=== PATIENT | male | born 1940 | race Caucasian/White ===

== ENCOUNTER 2018-01-28 09:59 | Inpatient (IN) | payer OTHER, MEDICARE ==
[2018-01-28] MEDS ORDERED: methylPREDNISolone Sodium Succinate 125 MG/2 ML SDV IVPUSH ONE (10:03)
--- NOTE | 2018-01-28 10:06 | EDM.PDOC ---
ED HPI GENERAL MEDICAL PROBLEM - General Chief Complaint: Respiratory Problem Stated Complaint: DIFF BREATHING Time Seen by Provider: 01/28/18 10:04 Source of Information: Reports: Patient - History of Present Illness INITIAL COMMENTS - FREE TEXT/NARRATIVE: HISTORY AND PHYSICAL: History of present illness: Patient was sent by private vehicle from [facility] Shortness of breath with accessory muscle usage No fever nausea vomiting chills sweats no chest pain Review of systems: As per history of present illness and below otherwise all systems reviewed and negative. Past medical history: As per history of present illness and as reviewed below otherwise noncontributory. Surgical history: As per history of present illness and as reviewed below otherwise noncontributory. Social history: No reported history of drug or alcohol abuse. Family history: As per history of present illness and as reviewed below otherwise noncontributory. Physical exam: HEENT: Atraumatic, normocephalic, pupils reactive, negative for conjunctival pallor or scleral icterus, mucous membranes moist, throat clear, neck supple, nontender, trachea midline. Lungs: Clear to auscultation, breath sounds equal bilaterally, chest nontender. Heart: S1S2, regular, negative for clicks, rubs, or JVD. Abdomen: Soft, nondistended, nontender. Negative for masses or hepatosplenomegaly. Negative for costovertebral tenderness. Pelvis: Stable nontender. Genitourinary: Deferred. Rectal: Deferred. Extremities: Atraumatic, negative for cords or calf pain. Neurovascular unremarkable. Neuro: Awake, alert, oriented. Cranial nerves II through XII unremarkable. Cerebellum unremarkable. Motor and sensory unremarkable throughout. Exam nonfocal. Diagnostics: CBC CMP troponin EKG Chest 1 view Therapeutics: normal saline TKO Solu-Medrol 125 mg IV DuoNeb 2 Impression: Hypoxia shortness of breath COPD exacerbation history of diabetes COPD hypertension Definitive disposition and diagnosis as appropriate pending reevaluation and review of above. - Related Data Allergies Allergy/AdvReac Type Severity Reaction Status Date / Time No Known Allergies Allergy Verified 01/28/18 10:08 Home Meds: Home Meds Aspirin/Calcium Carbonate/Mag [Aspirin Buffered 325 mg Tab] 325 mg PO DAILY [History] Metoprolol Tartrate 100 mg PO BID 05/22/14 [History] atorvaSTATin [Lipitor] 20 mg PO BEDTIME 05/22/14 [History] Triamterene/Hydrochlorothiazid [Triamterene-HCTZ 37.5-25 MG] 1 cap PO DAILY [History] Sennosides [Senna] 8.6 mg PO DAILY tablet 10/22/17 [Rx] Tiotropium [Spiriva HandiHaler] 18 mcg INH DAILY #30 cap 10/22/17 [Rx] Past Medical History Cardiovascular History: Reports: Bypass, High Cholesterol, Hypertension, Pacemaker Respiratory History: Reports: COPD, Sleep Apnea, SOB Endocrine/Metabolic History: Reports: Diabetes, Type II - Infectious Disease History Infectious Disease History: Reports: Measles Social & Family History - Family History Family Medical History: Noncontributory - Caffeine Use Caffeine Use: Reports: Coffee ED ROS GENERAL - Review of Systems Review Of Systems: See Below ED EXAM, GENERAL - Physical Exam Exam: See Below Course - Vital Signs Last Recorded V/S: Last Vital Signs Temp 97.3 F 01/28/18 10:03 Pulse 59 L 01/28/18 10:52 Resp 24 H 01/28/18 10:52 BP 136/66 01/28/18 10:52 Pulse Ox 96 01/28/18 10:52 - Orders/Labs/Meds Orders: Active Orders 24 hr Category Date Time Status EKG Documentation Completion [RC] STAT Care 01/28/18 10:03 Active RT Aerosol Therapy [RC] ASDIRECTED Care 01/28/18 10:04 Active UA W/MICROSCOPIC [URIN] Stat Lab 01/28/18 10:03 Ordered Sodium Chloride 0.9% [Normal Saline] 1,000 ml Med 01/28/18 10:15 Active IV STAT Medication Orders Sodium Chloride (Normal Saline) 1,000 mls @ 30 mls/hr IV STAT AARON Last Admin: 01/28/18 10:20 Dose: 30 mls/hr Labs: Laboratory Tests 01/28/18 01/28/18 01/28/18 Range/Units 09:42 09:42 09:42 WBC 10.19 (4.0-11.0) K/uL RBC 5.56 (4.50-5.90) M/uL Hgb 15.7 (13.0-17.0) g/dL Hct 47.7 (38.0-50.0) % MCV 85.8 (80.0-98.0) fL MCH 28.2 (27.0-32.0) pg MCHC 32.9 (31.0-37.0) g/dL RDW Std Deviation 49.6 (28.0-62.0) fl RDW Coeff of Johanna 16 H (11.0-15.0) % Plt Count 153 (150-400) K/uL MPV 9.70 (7.40-12.00) fL Neut % (Auto) 69.2 (48.0-80.0) % Lymph % (Auto) 13.2 L (16.0-40.0) % [place] % (Auto) 9.0 (0.0-15.0) % Eos % (Auto) 8.3 H (0.0-7.0) % Baso % (Auto) 0.3 (0.0-1.5) % Neut # (Auto) 7.1 H (1.4-5.7) K/uL Lymph # (Auto) 1.3 (0.6-2.4) K/uL [place] # (Auto) 0.9 H (0.0-0.8) K/uL Eos # (Auto) 0.9 H (0.0-0.7) K/uL Baso # (Auto) 0.0 (0.0-0.1) K/uL Nucleated RBC % 0.0 /100WBC Nucleated RBCs # 0 K/uL Sodium 137 (136-148) mmol/L Potassium 4.3 (3.5-5.1) mmol/L Chloride 102 (98-107) mmol/L Carbon Dioxide 27.7 (21.0-32.0) mmol/L BUN 22 H (7.0-18.0) mg/dL Creatinine 1.2 (0.8-1.3) mg/dL Est Cr Clr Drug Dosing 53.21 mL/min Estimated GFR (MDRD) 58.6 ml/min Glucose 171 H (74-106) mg/dL Calcium 9.4 (8.5-10.1) mg/dL Total Bilirubin 0.7 (0.2-1.0) mg/dL AST 28 (15-37) IU/L ALT 82 H (14-63) IU/L Alkaline Phosphatase 98 (46-116) U/L Troponin I < 0.050 (0.000-0.056) ng/mL B-Natriuretic Peptide 218 H (<100) PG/ML Total Protein 7.3 (6.4-8.2) g/dL Albumin 3.8 (3.4-5.0) g/dL Globulin 3.5 (2.0-3.5) g/dL Albumin/Globulin Ratio 1.1 L (1.3-2.8) Meds: Medications Generic Name Dose Route Start Last Admin Trade Name Freq PRN Reason Stop Dose Admin Sodium Chloride 1,000 mls @ 30 mls/hr 01/28/18 10:15 01/28/18 10:20 Normal Saline IV 30 mls/hr STAT AARON Administration Discontinued Medications Generic Name Dose Route Start Last Admin Trade Name Freq PRN Reason Stop Dose Admin Albuterol/Ipratropium 3 ml 01/28/18 10:03 01/28/18 10:26 Duoneb 3.0-0.5 Mg/3 Ml NEB 01/28/18 10:04 Not Given ONETIME ONE Albuterol/Ipratropium Confirm 01/28/18 10:21 01/28/18 10:27 Duoneb 3.0-0.5 Mg/3 Ml Administered 01/28/18 10:22 3 ml Dose Administration 3 ml .ROUTE .STK-MED ONE Methylprednisolone Sodium Succinate 125 mg 01/28/18 10:03 01/28/18 10:20 Solu-Medrol IVPUSH 01/28/18 10:04 125 mg ONETIME ONE Administration Departure - Departure Time of Disposition: 11:21 Disposition: Admitted As Inpatient 65 Condition: Poor Clinical Impression: Hypoxia, COPD (chronic obstructive pulmonary disease) - Discharge Information Referrals: Isis Peter MD [Primary Care Provider] - Forms: ED Department Discharge - My Orders Last 24 Hours: My Active Orders 01/28/18 10:03 EKG Documentation Completion [RC] STAT UA W/MICROSCOPIC [URIN] Stat 01/28/18 10:04 RT Aerosol Therapy [RC] ASDIRECTED 01/28/18 10:15 Sodium Chloride 0.9% [Normal Saline] 1,000 ml IV STAT - Assessment/Plan Last 24 Hours: My Active Orders 01/28/18 10:03 EKG Documentation Completion [RC] STAT UA W/MICROSCOPIC [URIN] Stat 01/28/18 10:04 RT Aerosol Therapy [RC] ASDIRECTED 01/28/18 10:15 Sodium Chloride 0.9% [Normal Saline] 1,000 ml IV STAT
[2018-01-28] MEDS ORDERED: Sodium Chloride 0.9% 1,000 ML IV SCH (10:15)
[2018-01-28] MEDS ORDERED: Albuterol/Ipratropium 3.0-0.5 MG/3 ML Neb Soln ONE (10:21)
[2018-01-28] MEDS: Albuterol/Ipratropium 3.0-0.5 MG/3 ML Neb Soln NEB ONE ×2 (10:26)
[2018-01-28 10:55] LABS: CHLORIDE,CL 102 mmol/L (98-107); SODIUM,NA 137 mmol/L (136-148)
--- NOTE | 2018-01-28 11:00 | CR ---
EXAMINATION: Portable chest radiograph. HISTORY: Shortness of breath. Comparison: 10/19/2017 FINDINGS: The trachea is midline. The cardiomediastinal silhouette is within normal limits. No pulmonary infilt rates, effusions or pneumothorax. There is a left-sided pacemaker noted. Median sternotomy wires are demonstrated. Osseous structures appear unremarkable. IMPRESSION: No acute cardiopulmonary process.
--- NOTE | 2018-01-28 13:59 | PCM.HP ---
H&P History of Present Illness - General Date of Service: 01/28/18 Admit Problem/Dx: Admission Diagnosis/Problem Admission Diagnosis/Problem Hypoxia Source of Information: Patient, Old Records History Limitations: Reports: No Limitations - History of Present Illness Initial Comments - Free Text/Narative: The patient is a 77-year-old gentleman who has presented to the emergency department after visiting his primary care physician. The patient was in the office and was referred directly to the emergency department. The patient reports for the past 3 weeks he has had severe shortness of breath. He has had difficulty breathing. Patient also has had worsening of this with exertion. He was admitted to hospitalization in October 2017 with similar circumstances. The patient has denied any fever or chills. He's had no nausea or vomiting. He has had no specific aggravating or relieving factors other than dyspnea on exertion. The patient does not normally use oxygen at home. He says that he quit smoking 20 years ago. Onset of Symptoms: Reports: Gradual Duration of Symptoms: Reports: Week(s):, Getting Worse Location: Reports: Chest Severity: Moderate Improves with: Reports: Medication Worsens with: Reports: Movement Associated Symptoms: Reports: Cough, Shortness of Breath. Denies: Fever/Chills , Headaches, Nausea/Vomiting - Related Data Allergies/Adverse Reactions: Allergies Allergy/AdvReac Type Severity Reaction Status Date / Time No Known Allergies Allergy Verified 01/28/18 10:08 Home Medications: Home Meds Aspirin/Calcium Carbonate/Mag [Aspirin Buffered 325 mg Tab] 325 mg PO DAILY [History] Metoprolol Tartrate 100 mg PO BID 05/22/14 [History] atorvaSTATin [Lipitor] 20 mg PO BEDTIME 05/22/14 [History] Triamterene/Hydrochlorothiazid [Triamterene-HCTZ 37.5-25 MG] 1 cap PO DAILY [History] Sennosides [Senna] 8.6 mg PO DAILY tablet 10/22/17 [Rx] Tiotropium [Spiriva HandiHaler] 18 mcg INH DAILY #30 cap 10/22/17 [Rx] Saxagliptin HCl/Metformin HCl [Kombiglyze XR 2.5-1,000 MG] 1 each PO ACDINNER [History] Past Medical History HEENT History: Reports: Cataract, Impaired Vision Other HEENT History: wears glasses Cardiovascular History: Reports: Bypass, High Cholesterol, Hypertension, Pacemaker Respiratory History: Reports: COPD, Sleep Apnea, SOB Gastrointestinal History: Reports: None Genitourinary History: Reports: None Musculoskeletal History: Reports: None Neurological History: Reports: None Endocrine/Metabolic History: Reports: Diabetes, Type II Hematologic History: Reports: None Dermatologic History: Reports: None - Infectious Disease History Infectious Disease History: Reports: Measles Social & Family History - Family History Family Medical History: Noncontributory - Tobacco Use Smoking Status *Q: Former Smoker Years of Tobacco use: 40 Packs/Tins Daily: 2 Used Tobacco, but Quit: Yes Month/Year Tobacco Last Used: 2003 Second Hand Smoke Exposure: No - Caffeine Use Caffeine Use: Reports: Coffee - Recreational Drug Use Recreational Drug Use: No H&P Review of Systems - Review of Systems: Review Of Systems: See Below General: Reports: Malaise. Denies: Fever, Chills HEENT: Reports: No Symptoms Pulmonary: Reports: Shortness of Breath, Wheezing, Cough. Denies: Sputum, Hemoptysis Cardiovascular: Reports: No Symptoms Gastrointestinal: Reports: No Symptoms Genitourinary: Reports: No Symptoms Musculoskeletal: Reports: No Symptoms Skin: Reports: No Symptoms Psychiatric: Reports: No Symptoms Neurological: Reports: No Symptoms Hematologic/Lymphatic: Reports: No Symptoms Immunologic: Reports: No Symptoms Exam - Exam Exam: See Below - Vital Signs Vital Signs: Last Vital Signs Temp 36.3 C 01/28/18 11:38 Pulse 63 01/28/18 11:38 Resp 22 H 01/28/18 11:38 BP 135/64 01/28/18 11:38 Pulse Ox 95 01/28/18 11:38 Weight: 115.439 kg - Exam Quality Assessment: Supplemental Oxygen General: Alert, Oriented, Cooperative HEENT: Conjunctiva Clear, EACs Clear, EOMI, Hearing Intact, Nares Patent, Pupils Equal. No: Mucosa Moist & Olivia Lopez De Gutierrez (Oropharynx dry) Neck: Supple, Trachea Midline. No: Thyromegaly Lungs: Decreased Breath Sounds, Crackles (Throughout all lung jackman), Wheezing Cardiovascular: Regular Rate, Regular Rhythm GI/Abdominal Exam: Normal Bowel Sounds, Soft, Non-Tender, No Distention (Male) Exam: Deferred Rectal (Males) Exam: Deferred Back Exam: Normal Inspection. No: Full Range of Motion (Age-related changes) Extremities: Normal Inspection, No Pedal Edema Skin: Warm, Dry, Intact Neurological: Cranial Nerves Intact Neuro Extensive - Mental Status: Alert, Oriented x3 Psychiatric: Alert, Normal Affect, Normal Mood - Patient Data Lab Results Last 24 hrs: Laboratory Results - last 24 hr 01/28/18 01/28/18 01/28/18 Range/Units 09:42 09:42 09:42 WBC 10.19 (4.0-11.0) K/uL RBC 5.56 (4.50-5.90) M/uL Hgb 15.7 (13.0-17.0) g/dL Hct 47.7 (38.0-50.0) % MCV 85.8 (80.0-98.0) fL MCH 28.2 (27.0-32.0) pg MCHC 32.9 (31.0-37.0) g/dL RDW Std Deviation 49.6 (28.0-62.0) fl RDW Coeff of Johanna 16 H (11.0-15.0) % Plt Count 153 (150-400) K/uL MPV 9.70 (7.40-12.00) fL Neut % (Auto) 69.2 (48.0-80.0) % Lymph % (Auto) 13.2 L (16.0-40.0) % [place] % (Auto) 9.0 (0.0-15.0) % Eos % (Auto) 8.3 H (0.0-7.0) % Baso % (Auto) 0.3 (0.0-1.5) % Neut # (Auto) 7.1 H (1.4-5.7) K/uL Lymph # (Auto) 1.3 (0.6-2.4) K/uL [place] # (Auto) 0.9 H (0.0-0.8) K/uL Eos # (Auto) 0.9 H (0.0-0.7) K/uL Baso # (Auto) 0.0 (0.0-0.1) K/uL Nucleated RBC % 0.0 /100WBC Nucleated RBCs # 0 K/uL Sodium 137 (136-148) mmol/L Potassium 4.3 (3.5-5.1) mmol/L Chloride 102 (98-107) mmol/L Carbon Dioxide 27.7 (21.0-32.0) mmol/L BUN 22 H (7.0-18.0) mg/dL Creatinine 1.2 (0.8-1.3) mg/dL Est Cr Clr Drug Dosing 53.21 mL/min Estimated GFR (MDRD) 58.6 ml/min Glucose 171 H (74-106) mg/dL Calcium 9.4 (8.5-10.1) mg/dL Total Bilirubin 0.7 (0.2-1.0) mg/dL AST 28 (15-37) IU/L ALT 82 H (14-63) IU/L Alkaline Phosphatase 98 (46-116) U/L Troponin I < 0.050 (0.000-0.056) ng/mL B-Natriuretic Peptide 218 H (<100) PG/ML Total Protein 7.3 (6.4-8.2) g/dL Albumin 3.8 (3.4-5.0) g/dL Globulin 3.5 (2.0-3.5) g/dL Albumin/Globulin Ratio 1.1 L (1.3-2.8) Result Diagrams: 01/28/18 09:42 01/28/18 09:42 - Problem List (1) Acute and chronic respiratory failure SNOMED Code(s): 19712726 ICD Code: J96.20 - ACUTE AND CHR RESP FAILURE, UNSP W HYPOXIA OR HYPERCAPNIA Status: Acute Priority: High Current Visit: Yes Qualifiers: Respiratory failure complication: hypoxia Qualified Code(s): J96.21 - Acute and chronic respiratory failure with hypoxia (2) COPD exacerbation SNOMED Code(s): 662194951 ICD Code: J44.1 - CHRONIC OBSTRUCTIVE PULMONARY DISEASE W (ACUTE) EXACERBATION Status: Chronic Priority: High Current Visit: Yes (3) Hypoxia SNOMED Code(s): 980827053 ICD Code: R09.02 - HYPOXEMIA Status: Acute Priority: High Current Visit : Yes (4) Diabetes mellitus SNOMED Code(s): 27169534 ICD Code: E11.9 - TYPE 2 DIABETES MELLITUS WITHOUT COMPLICATIONS Status: Chronic Priority: Medium Current Visit: Yes Qualifiers: Diabetes mellitus type: type 2 Diabetes mellitus buttermaker continuous churn insulin use: without group home use Diabetes mellitus complication status: with neurologic complications Diabetes mellitus complication detail: with polyneuropathy Qualified 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 (5) Hypertension SNOMED Code(s): 20672707 ICD Code: I10 - ESSENTIAL (PRIMARY) HYPERTENSION Status: Chronic Priority : Medium Current Visit: Yes Qualifiers: Hypertension type: essential hypertension Qualified Code(s): I10 - Essential (primary) hypertension (6) Obesity SNOMED Code(s): 317889636, 875147033 ICD Code: E66.9 - OBESITY, UNSPECIFIED Status: Chronic Priority: Medium Current Visit: No Qualifiers: Obesity classification: unspecified obesity classification Problem List Initiated/Reviewed/Updated: Yes Orders Last 24hrs: Active Orders 24 hr Category Date Time Status Admission Status [Patient Status] [ADT] Stat ADT 01/28/18 11:21 Active EKG Documentation Completion [RC] STAT Care 01/28/18 10:03 Active RT Aerosol Therapy [RC] ASDIRECTED Care 01/28/18 10:04 Active UA W/MICROSCOPIC [URIN] Stat Lab 01/28/18 13:45 Received Sodium Chloride 0.9% [Normal Saline] 1,000 ml Med 01/28/18 10:15 Active IV STAT Medication Orders Sodium Chloride (Normal Saline) 1,000 mls @ 30 mls/hr IV STAT AARON Last Admin: 01/28/18 10:20 Dose: 30 mls/hr Assessment/Plan Comment:: The patient is a 77-year-old gentleman who has been admitted observation secondary to acute exacerbation of COPD along with acute on chronic respiratory failure. The patient will be kept on IV fluids normal saline at 50 mL per hour to help avoid complications with congestive heart failure. The patient's fluid status was monitored. Patient is also diabetic and his results of this he'll be kept on insulin sliding scale along with acute checks before meals and at bedtime. He is also being kept on a carb constant diet. The patient does have a history of hyperglycemic episodes and these may be exacerbated by the steroids. These will be watched closely. He'll also be kept on IV antibiotics azithromycin 250 mg IV daily. Patient also has been encouraged to ambulate. The patient will be kept on Lovenox 40 mg subcutaneous daily for DVT prophylaxis as well. I suspect if the patient will be appropriate for discharge once his oxygen demands have improved and he is physically better. I have ordered repeat laboratory testing several morning.
[2018-01-28] MEDS ORDERED: Acetaminophen 325 MG Tab PO PRN (15:26)
[2018-01-28] MEDS ORDERED: Morphine 2 MG/ML Syringe IVPUSH PRN (15:26)
[2018-01-28] MEDS ORDERED: Pneumococcal Polyvalent-23 Vaccine 0.5 ML SDV IM ONE (15:26)
[2018-01-28] MEDS ORDERED: oxyCODONE 5 MG Tab PO PRN (15:26)
[2018-01-28] MEDS ORDERED: Ondansetron 4 MG Tab.DIS PO PRN (15:26)
[2018-01-28] MEDS ORDERED: Temazepam 15 MG Cap PO PRN (15:26)
[2018-01-28] MEDS ORDERED: Docusate Sodium 100 MG Cap PO PRN (15:26)
[2018-01-28] MEDS ORDERED: Ondansetron 4 MG/2 ML SDV IVPUSH SCH (15:30)
[2018-01-28] MEDS ORDERED: Azithromycin 250 MG in Sodium Chloride 0.9% 250 ML IV ONE (15:33)
[2018-01-28] MEDS: Sodium Chloride 0.9% 1,000 ML IV SCH (16:09)
[2018-01-28] MEDS: Enoxaparin 40 MG/0.4 ML Syringe SUBCUT SCH (16:16)
[2018-01-28] MEDS: Albuterol/Ipratropium 3.0-0.5 MG/3 ML Neb Soln NEB PRN ×2 (16:18→20:00)
[2018-01-28] MEDS: Insulin Aspart 100 Units/ML 3 ML Pen SUBCUT SCH (16:59)
[2018-01-28] MEDS: methylPREDNISolone Sodium Succinate 125 MG/2 ML SDV IV SCH (21:22)
[2018-01-28] MEDS: Insulin Glargine,Human Rec. Analog 100 Units/ML 3 ML Pen SUBCUT SCH (21:23)
[2018-01-29] MEDS: Albuterol/Ipratropium 3.0-0.5 MG/3 ML Neb Soln NEB PRN ×4 (00:20→23:51)
[2018-01-29] MEDS: methylPREDNISolone Sodium Succinate 125 MG/2 ML SDV IV SCH ×3 (06:45→21:12)
[2018-01-29] MEDS: Insulin Aspart 100 Units/ML 3 ML Pen SUBCUT SCH ×2 (07:24→17:49)
--- NOTE | 2018-01-29 08:58 | PCM.PN ---
- General Info Date of Service: 01/29/18 Admission Dx/Problem (Free Text): The patient is a 77-year-old gentleman who was admitted yesterday secondary to COPD exacerbation as well as severe shortness of breath. Patientsays that he feels like he needs to cough something up. He's been unable to. The patient also has denied any nausea or vomiting. He's been able to eat. Still remains. He has no other complaints. Functional Status: Reports: Pain Controlled - Review of Systems General: Reports: Weakness HEENT: Reports: No Symptoms Pulmonary: Reports: Shortness of Breath, Cough, Wheezing. Denies: Sputum, Hemoptysis Cardiovascular: Reports: No Symptoms Gastrointestinal: Reports: No Symptoms Genitourinary: Reports: No Symptoms Musculoskeletal: Reports: No Symptoms Skin: Reports: No Symptoms Neurological: Reports: No Symptoms Psychiatric: Reports: No Symptoms - Patient Data Vitals - Most Recent: Last Vital Signs Temp 37.1 C 01/29/18 07:00 Pulse 80 01/29/18 07:00 Resp 20 01/29/18 07:00 BP 137/63 01/29/18 07:00 Pulse Ox 94 L 01/29/18 07:00 Weight - Most Recent: 115.439 kg I&O - Last 24 Hours: Intake & Output 01/28/18 01/29/18 01/29/18 22:59 06:59 14:59 Intake Total 250 1410 Output Total 200 950 Balance 50 460 Lab Results Last 24 Hours: Laboratory Results - last 24 hr 01/28/18 01/28/18 01/28/18 Range/Units 09:42 09:42 09:42 WBC 10.19 (4.0-11.0) K/uL RBC 5.56 (4.50-5.90) M/uL Hgb 15.7 (13.0-17.0) g/dL Hct 47.7 (38.0-50.0) % MCV 85.8 (80.0-98.0) fL MCH 28.2 (27.0-32.0) pg MCHC 32.9 (31.0-37.0) g/dL RDW Std Deviation 49.6 (28.0-62.0) fl RDW Coeff of Johanna 16 H (11.0-15.0) % Plt Count 153 (150-400) K/uL MPV 9.70 (7.40-12.00) fL Neut % (Auto) 69.2 (48.0-80.0) % Lymph % (Auto) 13.2 L (16.0-40.0) % [place] % (Auto) 9.0 (0.0-15.0) % Eos % (Auto) 8.3 H (0.0-7.0) % Baso % (Auto) 0.3 (0.0-1.5) % Neut # (Auto) 7.1 H (1.4-5.7) K/uL Lymph # (Auto) 1.3 (0.6-2.4) K/uL [place] # (Auto) 0.9 H (0.0-0.8) K/uL Eos # (Auto) 0.9 H (0.0-0.7) K/uL Baso # (Auto) 0.0 (0.0-0.1) K/uL Nucleated RBC % 0.0 /100WBC Nucleated RBCs # 0 K/uL ABG pH (7.35-7.45) ABG pCO2 (35-45) mmHG ABG pO2 (75-100) mmHG ABG HCO3 (22-26) mEq/L ABG Total CO2 ABG Base Excess (-2.0-2.0) Sodium 137 (136-148) mmol/L Potassium 4.3 (3.5-5.1) mmol/L Chloride 102 (98-107) mmol/L Carbon Dioxide 27.7 (21.0-32.0) mmol/L BUN 22 H (7.0-18.0) mg/dL Creatinine 1.2 (0.8-1.3) mg/dL Est Cr Clr Drug Dosing 53.21 mL/min Estimated GFR (MDRD) 58.6 ml/min Glucose 171 H (74-106) mg/dL POC Glucose (60-110) mg/dL Calcium 9.4 (8.5-10.1) mg/dL Total Bilirubin 0.7 (0.2-1.0) mg/dL AST 28 (15-37) IU/L ALT 82 H (14-63) IU/L Alkaline Phosphatase 98 (46-116) U/L Troponin I < 0.050 (0.000-0.056) ng/mL B-Natriuretic Peptide 218 H (<100) PG/ML Total Protein 7.3 (6.4-8.2) g/dL Albumin 3.8 (3.4-5.0) g/dL Globulin 3.5 (2.0-3.5) g/dL Albumin/Globulin Ratio 1.1 L (1.3-2.8) Urine Color Urine Appearance Urine pH (5.0-8.0) Ur Specific [place] (1.001-1.035) Urine Protein (NEGATIVE) mg/dL Urine Glucose (UA) (NEGATIVE) mg/dL Urine Ketones (NEGATIVE) mg/dL Urine Occult Blood (NEGATIVE) Urine Nitrite (NEGATIVE) Urine Bilirubin (NEGATIVE) Urine Urobilinogen (<2.0) EU/dL Ur Leukocyte Esterase (NEGATIVE) Urine RBC (0-2/HPF) Urine WBC (0-5/HPF) Ur Epithelial Cells (NONE-FEW) Amorphous Sediment (NEGATIVE) Urine Bacteria (NEGATIVE) Urine Mucus (NONE-MOD) 01/28/18 01/28/18 01/28/18 Range/Units 13:45 16:00 16:19 WBC (4.0-11.0) K/uL RBC (4.50-5.90) M/uL Hgb (13.0-17.0) g/dL Hct (38.0-50.0) % MCV (80.0-98.0) fL MCH (27.0-32.0) pg MCHC (31.0-37.0) g/dL RDW Std Deviation (28.0-62.0) fl RDW Coeff of Johanna (11.0-15.0) % Plt Count (150-400) K/uL MPV (7.40-12.00) fL Neut % (Auto) (48.0-80.0) % Lymph % (Auto) (16.0-40.0) % [place] % (Auto) (0.0-15.0) % Eos % (Auto) (0.0-7.0) % Baso % (Auto) (0.0-1.5) % Neut # (Auto) (1.4-5.7) K/uL Lymph # (Auto) (0.6-2.4) K/uL [place] # (Auto) (0.0-0.8) K/uL Eos # (Auto) (0.0-0.7) K/uL Baso # (Auto) (0.0-0.1) K/uL Nucleated RBC % /100WBC Nucleated RBCs # K/uL ABG pH 7.345 L (7.35-7.45) ABG pCO2 49 H (35-45) mmHG ABG pO2 66 L (75-100) mmHG ABG HCO3 27 H (22-26) mEq/L ABG Total CO2 23.7 ABG Base Excess 0.1 (-2.0-2.0) Sodium (136-148) mmol/L Potassium (3.5-5.1) mmol/L Chloride (98-107) mmol/L Carbon Dioxide (21.0-32.0) mmol/L BUN (7.0-18.0) mg/dL Creatinine (0.8-1.3) mg/dL Est Cr Clr Drug Dosing mL/min Estimated GFR (MDRD) ml/min Glucose (74-106) mg/dL POC Glucose 401 H (60-110) mg/dL Calcium (8.5-10.1) mg/dL Total Bilirubin (0.2-1.0) mg/dL AST (15-37) IU/L ALT (14-63) IU/L Alkaline Phosphatase (46-116) U/L Troponin I (0.000-0.056) ng/mL B-Natriuretic Peptide (<100) PG/ML Total Protein (6.4-8.2) g/dL Albumin (3.4-5.0) g/dL Globulin (2.0-3.5) g/dL Albumin/Globulin Ratio (1.3-2.8) Urine Color YELLOW Urine Appearance CLEAR Urine pH 5.5 (5.0-8.0) Ur Specific [place] >= 1.030 (1.001-1.035) Urine Protein 30 (NEGATIVE) mg/dL Urine Glucose (UA) 250 H (NEGATIVE) mg/dL Urine Ketones NEGATIVE (NEGATIVE) mg/dL Urine Occult Blood TRACE-LYSED (NEGATIVE) Urine Nitrite NEGATIVE (NEGATIVE) Urine Bilirubin NEGATIVE (NEGATIVE) Urine Urobilinogen 0.2 (<2.0) EU/dL Ur Leukocyte Esterase NEGATIVE (NEGATIVE) Urine RBC 0-1 (0-2/HPF) Urine WBC 0-2 (0-5/HPF) Ur Epithelial Cells OCCASIONAL (NONE-FEW) Amorphous Sediment LIGHT (NEGATIVE) Urine Bacteria NOT SEEN (NEGATIVE) Urine Mucus NOT SEEN (NONE-MOD) 01/28/18 01/28/18 01/28/18 Range/Units 17:18 18:42 20:46 WBC (4.0-11.0) K/uL RBC (4.50-5.90) M/uL Hgb (13.0-17.0) g/dL Hct (38.0-50.0) % MCV (80.0-98.0) fL MCH (27.0-32.0) pg MCHC (31.0-37.0) g/dL RDW Std Deviation (28.0-62.0) fl RDW Coeff of Johanna (11.0-15.0) % Plt Count (150-400) K/uL MPV (7.40-12.00) fL Neut % (Auto) (48.0-80.0) % Lymph % (Auto) (16.0-40.0) % [place] % (Auto) (0.0-15.0) % Eos % (Auto) (0.0-7.0) % Baso % (Auto) (0.0-1.5) % Neut # (Auto) (1.4-5.7) K/uL Lymph # (Auto) (0.6-2.4) K/uL [place] # (Auto) (0.0-0.8) K/uL Eos # (Auto) (0.0-0.7) K/uL Baso # (Auto) (0.0-0.1) K/uL Nucleated RBC % /100WBC Nucleated RBCs # K/uL ABG pH (7.35-7.45) ABG pCO2 (35-45) mmHG ABG pO2 (75-100) mmHG ABG HCO3 (22-26) mEq/L ABG Total CO2 ABG Base Excess (-2.0-2.0) Sodium (136-148) mmol/L Potassium (3.5-5.1) mmol/L Chloride (98-107) mmol/L Carbon Dioxide (21.0-32.0) mmol/L BUN (7.0-18.0) mg/dL Creatinine (0.8-1.3) mg/dL Est Cr Clr Drug Dosing mL/min Estimated GFR (MDRD) ml/min Glucose (74-106) mg/dL POC Glucose 299 H 305 H 255 H (60-110) mg/dL Calcium (8.5-10.1) mg/dL Total Bilirubin (0.2-1.0) mg/dL AST (15-37) IU/L ALT (14-63) IU/L Alkaline Phosphatase (46-116) U/L Troponin I (0.000-0.056) ng/mL B-Natriuretic Peptide (<100) PG/ML Total Protein (6.4-8.2) g/dL Albumin (3.4-5.0) g/dL Globulin (2.0-3.5) g/dL Albumin/Globulin Ratio (1.3-2.8) Urine Color Urine Appearance Urine pH (5.0-8.0) Ur Specific [place] (1.001-1.035) Urine Protein (NEGATIVE) mg/dL Urine Glucose (UA) (NEGATIVE) mg/dL Urine Ketones (NEGATIVE) mg/dL Urine Occult Blood (NEGATIVE) Urine Nitrite (NEGATIVE) Urine Bilirubin (NEGATIVE) Urine Urobilinogen (<2.0) EU/dL Ur Leukocyte Esterase (NEGATIVE) Urine RBC (0-2/HPF) Urine WBC (0-5/HPF) Ur Epithelial Cells (NONE-FEW) Amorphous Sediment (NEGATIVE) Urine Bacteria (NEGATIVE) Urine Mucus (NONE-MOD) 01/29/18 01/29/18 01/29/18 Range/Units 06:15 06:15 06:38 WBC 10.17 (4.0-11.0) K/uL RBC 5.28 (4.50-5.90) M/uL Hgb 14.8 (13.0-17.0) g/dL Hct 45.9 (38.0-50.0) % MCV 86.9 (80.0-98.0) fL MCH 28.0 (27.0-32.0) pg MCHC 32.2 (31.0-37.0) g/dL RDW Std Deviation 49.5 (28.0-62.0) fl RDW Coeff of Johanna 16 H (11.0-15.0) % Plt Count 170 (150-400) K/uL MPV 9.80 (7.40-12.00) fL Neut % (Auto) 89.9 H (48.0-80.0) % Lymph % (Auto) 7.4 L (16.0-40.0) % [place] % (Auto) 2.6 (0.0-15.0) % Eos % (Auto) 0.0 (0.0-7.0) % Baso % (Auto) 0.1 (0.0-1.5) % Neut # (Auto) 9.2 H (1.4-5.7) K/uL Lymph # (Auto) 0.8 (0.6-2.4) K/uL [place] # (Auto) 0.3 (0.0-0.8) K/uL Eos # (Auto) 0.0 (0.0-0.7) K/uL Baso # (Auto) 0.0 (0.0-0.1) K/uL Nucleated RBC % 0.0 /100WBC Nucleated RBCs # 0 K/uL ABG pH (7.35-7.45) ABG pCO2 (35-45) mmHG ABG pO2 (75-100) mmHG ABG HCO3 (22-26) mEq/L ABG Total CO2 ABG Base Excess (-2.0-2.0) Sodium 136 (136-148) mmol/L Potassium 4.3 (3.5-5.1) mmol/L Chloride 101 (98-107) mmol/L Carbon Dioxide 25.3 (21.0-32.0) mmol/L BUN 31 H (7.0-18.0) mg/dL Creatinine 1.6 H (0.8-1.3) mg/dL Est Cr Clr Drug Dosing 39.29 mL/min Estimated GFR (MDRD) 42.0 ml/min Glucose 328 H (74-106) mg/dL POC Glucose 289 H (60-110) mg/dL Calcium 8.9 (8.5-10.1) mg/dL Total Bilirubin (0.2-1.0) mg/dL AST (15-37) IU/L ALT (14-63) IU/L Alkaline Phosphatase (46-116) U/L Troponin I (0.000-0.056) ng/mL B-Natriuretic Peptide (<100) PG/ML Total Protein (6.4-8.2) g/dL Albumin (3.4-5.0) g/dL Globulin (2.0-3.5) g/dL Albumin/Globulin Ratio (1.3-2.8) Urine Color Urine Appearance Urine pH (5.0-8.0) Ur Specific [place] (1.001-1.035) Urine Protein (NEGATIVE) mg/dL Urine Glucose (UA) (NEGATIVE) mg/dL Urine Ketones (NEGATIVE) mg/dL Urine Occult Blood (NEGATIVE) Urine Nitrite (NEGATIVE) Urine Bilirubin (NEGATIVE) Urine Urobilinogen (<2.0) EU/dL Ur Leukocyte Esterase (NEGATIVE) Urine RBC (0-2/HPF) Urine WBC (0-5/HPF) Ur Epithelial Cells (NONE-FEW) Amorphous Sediment (NEGATIVE) Urine Bacteria (NEGATIVE) Urine Mucus (NONE-MOD) Med Orders - Current: Current Medications Acetaminophen (Tylenol) 650 mg PO Q4H PRN PRN Reason: Pain (Mild 1-3)/fever Albuterol/Ipratropium (Duoneb 3.0-0.5 Mg/3 Ml) 3 ml NEB Q4HRRT PRN PRN Reason: Shortness Of Breath/wheezing Last Admin: 01/29/18 06:51 Dose: 3 ml Atorvastatin Calcium (Lipitor) 20 mg PO BEDTIME AARON Docusate Sodium (Colace) 100 mg PO BID PRN PRN Reason: Constipation Enoxaparin Sodium (Lovenox) 40 mg SUBCUT Q24H [facility] Last Admin: 01/28/18 16:16 Dose: 40 mg Sodium Chloride (Normal Saline) 1,000 mls @ 50 mls/hr IV ASDIRECTED [facility] Last Admin: 01/28/18 16:09 Dose: 50 mls/hr Insulin Aspart (Novolog) 0 unit SUBCUT BIDAC [facility]; Protocol Last Admin: 01/29/18 07:24 Dose: 6 units Insulin Glargine (Lantus Solostar) 25 units SUBCUT BEDTIME [facility] Last Admin: 01/28/18 21:23 Dose: 25 unit Lisinopril (Prinivil) 10 mg PO DAILY [facility] Methylprednisolone Sodium Succinate (Solu-Medrol) 125 mg IV Q8HR [facility] Last Admin: 01/29/18 06:45 Dose: 125 mg Metoprolol Tartrate (Lopressor) 100 mg PO BID [facility] Morphine Sulfate (Morphine) 2 mg IVPUSH Q2H PRN PRN Reason: Pain (severe 7-10) Stop: 01/29/18 15:30 Non-Formulary Medication (Aspirin/Calcium Carbonate/Mag [Aspirin Buffered 325 Mg Tab]) 325 mg PO DAILY [facility] Non-Formulary Medication (Saxagliptin Hcl/Metformin Hcl [Kombiglyze Xr 2.5-1, 000 Mg]) 1 each PO ACDINNER [facility] Ondansetron HCl (Zofran Odt) 4 mg PO Q6H PRN PRN Reason: nausea, able to take PO Oxycodone HCl (Oxycodone) 5 mg PO Q4H PRN PRN Reason: Pain (moderate 4-6) Senna (Senna) 8.6 mg PO DAILY [facility] Temazepam (Restoril) 15 mg PO BEDTIME PRN PRN Reason: Sleep Tiotropium Cedar (Spiriva Handihaler) 18 mcg INH DAILY [facility] Triamterene/HCTZ (Maxzide 25-37.5 Mg) 1 each PO DAILY AARON Discontinued Medications Albuterol/Ipratropium (Duoneb 3.0-0.5 Mg/3 Ml) 3 ml NEB ONETIME ONE Stop: 01/28/18 10:04 Last Admin: 01/28/18 10:26 Dose: Not Given Albuterol/Ipratropium (Duoneb 3.0-0.5 Mg/3 Ml) Confirm Administered Dose 3 ml .ROUTE .STK-MED ONE Stop: 01/28/18 10:22 Last Admin: 01/28/18 10:27 Dose: 3 ml Sodium Chloride (Normal Saline) 1,000 mls @ 30 mls/hr IV STAT AARON Last Admin: 01/28/18 10:20 Dose: 30 mls/hr Azithromycin 250 mg/ Sodium (Chloride) 250 mls @ 250 mls/hr IV ONETIME ONE Stop: 01/28/18 16:32 Last Admin: 01/28/18 16:12 Dose: 250 mls/hr Methylprednisolone Sodium Succinate (Solu-Medrol) 125 mg IVPUSH ONETIME ONE Stop: 01/28/18 10:04 Last Admin: 01/28/18 10:20 Dose: 125 mg Ondansetron HCl (Zofran) 4 mg IVPUSH Q6H AARON Last Admin: 01/28/18 16:04 Dose: Not Given Pneumococcal Polyvalent Vaccine (Pneumovax 23) 0.5 ml IM .ONCE ONE Stop: 01/28/18 15:27 - Exam Quality Assessment: Supplemental Oxygen. No: Urine Catheter General: Alert, Oriented, Cooperative, Mild Distress HEENT: Pupils Equal, Pupils Reactive, EOMI Neck: Supple, Trachea Midline. No: Lymphadenopathy, Thyromegaly Lungs: Rhonchi (upper airway), Wheezing. No: Clear to Auscultation GI/Abdominal Exam: Normal Bowel Sounds, Soft, Non-Tender, No Distention (Male) Exam: Deferred Back Exam: Normal Inspection. No: Full Range of Motion (Age-related changes) Extremities: Normal Inspection Skin: Warm, Dry, Intact Neurological: No New Focal Deficit Psy/Mental Status: Alert, Normal Affect, Normal Mood - Problem List & Annotations (1) Acute and chronic respiratory failure SNOMED Code(s): 30859172 Code(s): J96.20 - ACUTE AND CHR RESP FAILURE, UNSP W HYPOXIA OR HYPERCAPNIA Status: Acute Priority: High Current Visit: Yes Qualifiers: Respiratory failure complication: hypoxia Qualified Code(s): J96.21 - Acute and chronic respiratory failure with hypoxia (2) COPD exacerbation SNOMED Code(s): 816764806 Code(s): J44.1 - CHRONIC OBSTRUCTIVE PULMONARY DISEASE W (ACUTE) EXACERBATION Status: Chronic Priority: High Current Visit: Yes (3) Hypoxia SNOMED Code(s): 059133059 Code(s): R09.02 - HYPOXEMIA Status: Acute Priority: High Current Visit : Yes (4) Diabetes mellitus SNOMED Code(s): 07885066 Code(s): E11.9 - TYPE 2 DIABETES MELLITUS WITHOUT COMPLICATIONS Status: Chronic Priority: Medium Current Visit: Yes Qualifiers: Diabetes mellitus type: type 2 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 use: without termite renewal inspector use Diabetes mellitus complication status: with neurologic complications Diabetes mellitus complication detail: with polyneuropathy Qualified 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 (5) Hypertension SNOMED Code(s): 97969106 Code(s): I10 - ESSENTIAL (PRIMARY) HYPERTENSION Status: Chronic Priority : Medium Current Visit: Yes Qualifiers: Hypertension type: essential hypertension Qualified Code(s): I10 - Essential (primary) hypertension (6) Obesity SNOMED Code(s): 720232862, 584730833 Code(s): E66.9 - OBESITY, UNSPECIFIED Status: Chronic Priority: Medium Current Visit: No Qualifiers: Obesity classification: unspecified obesity classification - Problem List Review Problem List Initiated/Reviewed/Updated: Yes - My Orders Last 24 Hours: My Active Orders 01/28/18 15:26 Patient Status [ADT] Routine Blood Glucose Check, Bedside [RC] WITHMEALSANDBED Oxygen Therapy [RC] PRN Up With Assistance [RC] ASDIRECTED VTE/DVT Education [RC] PER UNIT ROUTINE Vital Signs [RC] Q4H Acetaminophen [Tylenol] 650 mg PO Q4H PRN Albuterol/Ipratropium [DuoNeb 3.0-0.5 MG/3 ML] 3 ml NEB Q4HRRT PRN Docusate Sodium [Colace] 100 mg PO BID PRN Morphine 2 mg IVPUSH Q2H PRN Ondansetron [Zofran ODT] 4 mg PO Q6H PRN Temazepam [Restoril] 15 mg PO BEDTIME PRN oxyCODONE 5 mg PO Q4H PRN GM Immunization Reflex [OM.PC] Click To Edit Resuscitation Status Routine 01/28/18 15:29 Cardiac Monitoring [RC] Q8H Pulse Oximetry [RC] CONTINUOUS Telemetry Monitoring [Cardiac Monitoring] [RC] . DIRECTED 01/28/18 15:30 Enoxaparin [Lovenox] 40 mg SUBCUT Q24H Sodium Chloride 0.9% [Normal Saline] 1,000 ml IV ASDIRECTED 01/28/18 15:31 Communication, Vaccine [RC] PER UNIT ROUTINE RT Aerosol Therapy [RC] ASDIRECTED Vaccines to be Administered [RC] PER UNIT ROUTINE 01/28/18 15:53 INFLUENZA A+B AG SCREEN [RM] Urgent 01/28/18 17:00 Insulin Aspart [NovoLOG] See Protocol SUBCUT BIDAC 01/28/18 21:00 Insulin Glarg,Human.Rec.Analog [LantUS Solostar] 25 units SUBCUT BEDTIME 01/28/18 22:00 methylPREDNISolone Sod Succ [Solu-MEDROL] 125 mg IV Q8HR 01/28/18 Dinner Consistent Carbohydrate Diet [DIET] 01/29/18 09:00 Aspirin/Calcium Carbonate/Mag [Aspirin Buffered 325 mg Tab] 325 mg PO DAILY HCTZ/Triamterene [Maxzide 25-37.5 MG] 1 each PO DAILY Lisinopril [Prinivil] 10 mg PO DAILY Metoprolol Tartrate [Lopressor] 100 mg PO BID Sennosides [Senna] 8.6 mg PO DAILY Tiotropium [Spiriva HandiHaler] 18 mcg INH DAILY 01/29/18 17:00 Saxagliptin HCl/Metformin HCl [Kombiglyze XR 2.5-1,000 MG] 1 each PO ACDINNER 01/29/18 21:00 atorvaSTATin [Lipitor] 20 mg PO BEDTIME - Plan Plan:: The patient is a 77-year-old gentleman who had been admitted acute on chronic respiratory failure secondary to COPD exacerbation. The patient has experienced some improvement. He does have upper airway rhonchi and coarse breath sounds. He still requiring oxygen support. I've ordered respiratory to provide the patient with normal saline to help the patient expectorate. The patient IV Solu- Medrol. The patient will also be kept on IV azithromycin. I've encouraged patient to ambulate. Repeat laboratory testing since been ordered for the morning. The patient should be appropriate for discharge in 1-2 days. The patient will also be on ADA with accuchecks AC and HS. His sliding scale insulin will be increased due to steroids.
[2018-01-29] MEDS: Tiotropium Inhaler 18 MCG Inhalation Powder Cap Kit of 5 INH SCH (09:14)
[2018-01-29] MEDS: Metoprolol Tartrate 50 MG Tab PO SCH ×2 (09:18→21:11)
[2018-01-29] MEDS: Sennosides 8.6 MG Tab PO SCH (09:19)
[2018-01-29] MEDS: Lisinopril 10 MG Tab PO SCH (09:19)
[2018-01-29] MEDS: Hydrochlorothiazide/Triamterene 25-37.5 Tab PO SCH (09:20)
[2018-01-29] MEDS: Aspirin 325 MG Tab.EC PO SCH (09:23)
[2018-01-29] MEDS: Enoxaparin 40 MG/0.4 ML Syringe SUBCUT SCH (15:12)
[2018-01-29] MEDS ORDERED: KOMBIGLYZE PO SCH (17:00)
[2018-01-29] MEDS ORDERED: atorvaSTATin 20 MG Tab PO SCH (21:00)
[2018-01-29] MEDS: Insulin Glargine,Human Rec. Analog 100 Units/ML 3 ML Pen SUBCUT SCH (21:17)
[2018-01-30] MEDS: methylPREDNISolone Sodium Succinate 125 MG/2 ML SDV IV SCH (06:38)
[2018-01-30] MEDS: Insulin Aspart 100 Units/ML 3 ML Pen SUBCUT SCH (06:49)
[2018-01-30] MEDS: Sodium Chloride 0.9% 1,000 ML IV SCH (07:00)
[2018-01-30] MEDS: Albuterol/Ipratropium 3.0-0.5 MG/3 ML Neb Soln NEB PRN ×2 (07:15→12:49)
[2018-01-30 08:26] VITALS: BP 137/57
[2018-01-30] MEDS: Hydrochlorothiazide/Triamterene 25-37.5 Tab PO SCH (09:12)
[2018-01-30] MEDS: Metoprolol Tartrate 50 MG Tab PO SCH (09:12)
[2018-01-30] MEDS: Aspirin 325 MG Tab.EC PO SCH (09:12)
[2018-01-30] MEDS: Lisinopril 10 MG Tab PO SCH (09:17)
[2018-01-30] MEDS: Sennosides 8.6 MG Tab PO SCH (09:17)
[2018-01-30] MEDS: Tiotropium Inhaler 18 MCG Inhalation Powder Cap Kit of 5 INH SCH (09:18)
--- NOTE | 2018-01-30 11:23 | PCM.DCSUM1 ---
Discharge Summary - Hospital Course Diagnosis: Stroke: No - Discharge Data Discharge Date: 01/30/18 Discharge Disposition: Home, Self-Care 01 Condition: Stable - Discharge Diagnosis/Problem(s) (1) Acute and chronic respiratory failure SNOMED Code(s): 89228790 ICD Code: J96.20 - ACUTE AND CHR RESP FAILURE, UNSP W HYPOXIA OR HYPERCAPNIA Status: Resolved Priority: High Qualifiers: Respiratory failure complication: hypoxia Qualified Code(s): J96.21 - Acute and chronic respiratory failure with hypoxia (2) COPD exacerbation SNOMED Code(s): 972868297 ICD Code: J44.1 - CHRONIC OBSTRUCTIVE PULMONARY DISEASE W (ACUTE) EXACERBATION Status: Chronic Priority: High (3) Hypoxia SNOMED Code(s): 873831761 ICD Code: R09.02 - HYPOXEMIA Status: Resolved Priority: High (4) Diabetes mellitus SNOMED Code(s): 87215957 ICD Code: E11.9 - TYPE 2 DIABETES MELLITUS WITHOUT COMPLICATIONS Status: Chronic Priority: Medium Qualifiers: Diabetes mellitus type: type 2 Diabetes mellitus assisted insulin use: without assisted use Diabetes mellitus complication status: with neurologic complications Diabetes mellitus complication detail: with polyneuropathy Qualified 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 (5) Hypertension SNOMED Code(s): 70611432 ICD Code: I10 - ESSENTIAL (PRIMARY) HYPERTENSION Status: Chronic Priority : Medium Qualifiers: Hypertension type: essential hypertension Qualified Code(s): I10 - Essential (primary) hypertension (6) Obesity SNOMED Code(s): 759246660, 239836266 ICD Code: E66.9 - OBESITY, UNSPECIFIED Status: Chronic Priority: Medium Qualifiers: Obesity classification: unspecified obesity classification - Patient Summary/Data Hospital Course: The patient is a 77-year-old gentleman who had presented to the emergency department after visiting his primary care physician for shortness of breath. The patient in the ER had been noted to be using accessory muscles as well as tripod support. The patient reports that he has been having worsening of his respiratory status prior to admission. He was admitted and started on IV antibiotics consisting of the azithromycin as well as IV Solu-Medrol 125 mg IV every 8 hours. The patient also had DuoNeb SVNs every 4 hours per respiratory therapy and he improved significantly. The patient has a history of diabetes mellitus type 2 that showed poor control at 9.5%. Prior to current admission the patient had been admitted to the hospital in October 2017 with similar symptoms. The short course of hospitalization the patient had continued to improve. His oxygen saturation had improved to the point where he was able to maintain his saturations on room air. The patient also had nebulizer treatment with normal saline in order to help with expectoration of thick upper airway mucus. Influenza swabs were taken and they were negative for both A and B influenza. The patient also had a chest x-ray obtained on January 28, 2018 was consistent with COPD exacerbation as it did not show any evidence of acute cardiopulmonary processes. The patient had been ambulating. He had been tolerating his diet. The patient has been recommended to continue with his heart healthy diet as tolerated. He is also to have activity as tolerated. Patient had been prescribed Anoro and DuoNeb's along with azithromycin 250 mg by mouth daily for 5 days. Patient also had been placed on tapering methylprednisolone. The patient has been recommended to follow up with his primary care physician. The patient had been hemodynamically stable by time of discharge and he was discharged with the recommendations listed above. - Patient Instructions Diet: Heart Healthy Diet Activity: As Tolerated Driving: May Drive Today Notify Provider of: Fever, Increased Pain - Discharge Plan *PRESCRIPTION DRUG MONITORING PROGRAM REVIEWED*: Not Applicable *COPY OF PRESCRIPTION DRUG MONITORING REPORT IN PATIENT BELLE: Not Applicable Prescriptions/Med Rec: Albuterol/Ipratropium [DuoNeb 3.0-0.5 MG/3 ML] 3 ml NEB Q4HRRT PRN 30 Days #60 neb PRN Reason: Shortness Of Breath/wheezing Azithromycin [Zithromax] 250 mg PO Q24H 5 Days #5 tablet methylPREDNISolone [Medrol] 1 mg PO ASDIRECTED #1 dospk Home Medications: Home Meds Aspirin/Calcium Carbonate/Mag [Aspirin Buffered 325 mg Tab] 325 mg PO DAILY [History] Metoprolol Tartrate 100 mg PO BID 05/22/14 [History] atorvaSTATin [Lipitor] 20 mg PO BEDTIME 05/22/14 [History] Triamterene/Hydrochlorothiazid [Triamterene-HCTZ 37.5-25 MG] 1 cap PO DAILY [History] Sennosides [Senna] 8.6 mg PO DAILY tablet 10/22/17 [Rx] Tiotropium [Spiriva HandiHaler] 18 mcg INH DAILY #30 cap 10/22/17 [Rx] Lisinopril 10 mg PO DAILY 01/28/18 [History] Saxagliptin HCl/Metformin HCl [Kombiglyze XR 2.5-1,000 MG] 1 each PO ACDINNER [History] Acetaminophen [Tylenol] 650 mg PO Q4H PRN tablet 01/30/18 [Rx] Albuterol/Ipratropium [DuoNeb 3.0-0.5 MG/3 ML] 3 ml NEB Q4HRRT PRN 30 Days #60 neb 01/30/18 [Rx] Azithromycin [Zithromax] 250 mg PO Q24H 5 Days #5 tablet 01/30/18 [Rx] Docusate Sodium [Colace] 100 mg PO BID PRN cap 01/30/18 [Rx] atorvaSTATin [Lipitor] 20 mg PO BEDTIME tablet 01/30/18 [Rx] methylPREDNISolone [Medrol] 1 mg PO ASDIRECTED #1 dospk 01/30/18 [Rx] Patient Handouts: Umeclidinium; Vilanterol inhalation powder, Chronic Obstructive Pulmonary Disease, [id number], How to Use a Metered Dose Inhaler, Azithromycin tablets, Form-COPD Action Plan, Methylprednisolone tablets, Albuterol; Ipratropium solution for inhalation, How to Use a Dry Powder Inhaler Referrals: Isis Peter MD [Primary Care Provider] - - Discharge Summary/Plan Comment DC Time >30 min.: Yes - General Info Date of Service: 01/30/18 Admission Dx/Problem (Free Text: The patient is a 77-year-old gentleman who was admitted yesterday secondary to COPD exacerbation as well as severe shortness of breath. Patientsays that he feels like he needs to cough something up. He's been unable to. The patient also has denied any nausea or vomiting. He's been able to eat. Still remains. He has no other complaints. Functional Status: Reports: Pain Controlled, Tolerating Diet, Ambulating - Review of Systems General: Reports: No Symptoms HEENT: Reports: No Symptoms Pulmonary: Reports: No Symptoms Cardiovascular: Reports: No Symptoms Gastrointestinal: Reports: No Symptoms Genitourinary: Reports: No Symptoms Musculoskeletal: Reports: No Symptoms Skin: Reports: No Symptoms Neurological: Reports: No Symptoms Psychiatric: Reports: No Symptoms - Patient Data Vitals - Most Recent: Last Vital Signs Temp 36.2 C 01/30/18 08:00 Pulse 62 01/30/18 09:12 Resp 16 01/30/18 08:00 BP 137/57 L 01/30/18 09:17 Pulse Ox 96 01/30/18 08:00 Weight - Most Recent: 115.439 kg I&O - Last 24 hours: Intake & Output 01/29/18 01/30/18 01/30/18 22:59 06:59 14:59 Intake Total 500 500 999 Output Total 825 1250 Balance -325 -750 999 Lab Results - Last 24 hrs: Laboratory Results - last 24 hr 01/29/18 01/29/18 01/29/18 Range/Units 11:38 16:10 20:52 WBC (4.0-11.0) K/uL RBC (4.50-5.90) M/uL Hgb (13.0-17.0) g/dL Hct (38.0-50.0) % MCV (80.0-98.0) fL MCH (27.0-32.0) pg MCHC (31.0-37.0) g/dL RDW Std Deviation (28.0-62.0) fl RDW Coeff of Johanna (11.0-15.0) % Plt Count (150-400) K/uL MPV (7.40-12.00) fL Neut % (Auto) (48.0-80.0) % Lymph % (Auto) (16.0-40.0) % [place] % (Auto) (0.0-15.0) % Eos % (Auto) (0.0-7.0) % Baso % (Auto) (0.0-1.5) % Neut # (Auto) (1.4-5.7) K/uL Lymph # (Auto) (0.6-2.4) K/uL [place] # (Auto) (0.0-0.8) K/uL Eos # (Auto) (0.0-0.7) K/uL Baso # (Auto) (0.0-0.1) K/uL Nucleated RBC % /100WBC Nucleated RBCs # K/uL Sodium (136-148) mmol/L Potassium (3.5-5.1) mmol/L Chloride (98-107) mmol/L Carbon Dioxide (21.0-32.0) mmol/L BUN (7.0-18.0) mg/dL Creatinine (0.8-1.3) mg/dL Est Cr Clr Drug Dosing mL/min Estimated GFR (MDRD) ml/min Glucose (74-106) mg/dL POC Glucose 243 H 276 H 325 H (60-110) mg/dL Hemoglobin A1c (4.5-6.2) % Calcium (8.5-10.1) mg/dL Magnesium (1.8-2.4) mg/dL 01/30/18 01/30/18 01/30/18 Range/Units 05:46 05:46 05:46 WBC 9.65 (4.0-11.0) K/uL RBC 5.09 (4.50-5.90) M/uL Hgb 14.2 (13.0-17.0) g/dL Hct 44.2 (38.0-50.0) % MCV 86.8 (80.0-98.0) fL MCH 27.9 (27.0-32.0) pg MCHC 32.1 (31.0-37.0) g/dL RDW Std Deviation 49.2 (28.0-62.0) fl RDW Coeff of Johanna 15 (11.0-15.0) % Plt Count 132 L (150-400) K/uL MPV 9.80 (7.40-12.00) fL Neut % (Auto) 88.7 H (48.0-80.0) % Lymph % (Auto) 7.6 L (16.0-40.0) % [place] % (Auto) 3.6 (0.0-15.0) % Eos % (Auto) 0.0 (0.0-7.0) % Baso % (Auto) 0.1 (0.0-1.5) % Neut # (Auto) 8.6 H (1.4-5.7) K/uL Lymph # (Auto) 0.7 (0.6-2.4) K/uL [place] # (Auto) 0.4 (0.0-0.8) K/uL Eos # (Auto) 0.0 (0.0-0.7) K/uL Baso # (Auto) 0.0 (0.0-0.1) K/uL Nucleated RBC % 0.0 /100WBC Nucleated RBCs # 0 K/uL Sodium 137 (136-148) mmol/L Potassium 4.8 (3.5-5.1) mmol/L Chloride 103 (98-107) mmol/L Carbon Dioxide 27.8 (21.0-32.0) mmol/L BUN 36 H (7.0-18.0) mg/dL Creatinine 1.3 (0.8-1.3) mg/dL Est Cr Clr Drug Dosing 48.35 mL/min Estimated GFR (MDRD) 53.4 ml/min Glucose 308 H (74-106) mg/dL POC Glucose (60-110) mg/dL Hemoglobin A1c 9.5 H (4.5-6.2) % Calcium 8.9 (8.5-10.1) mg/dL Magnesium (1.8-2.4) mg/dL 01/30/18 Range/Units 05:46 WBC (4.0-11.0) K/uL RBC (4.50-5.90) M/uL Hgb (13.0-17.0) g/dL Hct (38.0-50.0) % MCV (80.0-98.0) fL MCH (27.0-32.0) pg MCHC (31.0-37.0) g/dL RDW Std Deviation (28.0-62.0) fl RDW Coeff of Johanna (11.0-15.0) % Plt Count (150-400) K/uL MPV (7.40-12.00) fL Neut % (Auto) (48.0-80.0) % Lymph % (Auto) (16.0-40.0) % [place] % (Auto) (0.0-15.0) % Eos % (Auto) (0.0-7.0) % Baso % (Auto) (0.0-1.5) % Neut # (Auto) (1.4-5.7) K/uL Lymph # (Auto) (0.6-2.4) K/uL [place] # (Auto) (0.0-0.8) K/uL Eos # (Auto) (0.0-0.7) K/uL Baso # (Auto) (0.0-0.1) K/uL Nucleated RBC % /100WBC Nucleated RBCs # K/uL Sodium (136-148) mmol/L Potassium (3.5-5.1) mmol/L Chloride (98-107) mmol/L Carbon Dioxide (21.0-32.0) mmol/L BUN (7.0-18.0) mg/dL Creatinine (0.8-1.3) mg/dL Est Cr Clr Drug Dosing mL/min Estimated GFR (MDRD) ml/min Glucose (74-106) mg/dL POC Glucose (60-110) mg/dL Hemoglobin A1c (4.5-6.2) % Calcium (8.5-10.1) mg/dL Magnesium 2.0 (1.8-2.4) mg/dL WONG Results - Last 24 hrs: Microbiology 01/29/18 10:50 Influenza Type A Antigen Screen - Final Nasopharyngeal Swab NEGATIVE INFLUENZA A VIRUS AG Influenza Type B Antigen Screen - Final NEGATIVE INFLUENZA B VIRUS AG Med Orders - Current: Current Medications Acetaminophen (Tylenol) 650 mg PO Q4H PRN PRN Reason: Pain (Mild 1-3)/fever Albuterol/Ipratropium (Duoneb 3.0-0.5 Mg/3 Ml) 3 ml NEB Q4HRRT PRN PRN Reason: Shortness Of Breath/wheezing Last Admin: 01/30/18 07:15 Dose: 3 ml Aspirin (Ecotrin) 325 mg PO DAILY [facility] Last Admin: 01/30/18 09:12 Dose: 325 mg Atorvastatin Calcium (Lipitor) 20 mg PO BEDTIME [facility] Last Admin: 01/29/18 21:11 Dose: 20 mg Docusate Sodium (Colace) 100 mg PO BID PRN PRN Reason: Constipation Enoxaparin Sodium (Lovenox) 40 mg SUBCUT Q24H [facility] Last Admin: 01/29/18 15:12 Dose: 40 mg Sodium Chloride (Normal Saline) 1,000 mls @ 50 mls/hr IV ASDIRECTED [facility] Last Admin: 01/30/18 07:00 Dose: 50 mls/hr Insulin Aspart (Novolog) 0 unit SUBCUT BIDAC [facility]; Protocol Last Admin: 01/30/18 06:49 Dose: 9 units Insulin Glargine (Lantus Solostar) 25 units SUBCUT BEDTIME [facility] Last Admin: 01/29/18 21:17 Dose: 25 unit Lisinopril (Prinivil) 10 mg PO DAILY [facility] Last Admin: 01/30/18 09:17 Dose: 10 mg Methylprednisolone Sodium Succinate (Solu-Medrol) 125 mg IV Q8HR [facility] Last Admin: 01/30/18 06:38 Dose: 125 mg Metoprolol Tartrate (Lopressor) 100 mg PO BID [facility] Last Admin: 01/30/18 09:12 Dose: 100 mg Ondansetron HCl (Zofran Odt) 4 mg PO Q6H PRN PRN Reason: nausea, able to take PO Oxycodone HCl (Oxycodone) 5 mg PO Q4H PRN PRN Reason: Pain (moderate 4-6) Kombiglyze Xr 2.5-1, (000 Mg) 1 each PO ACDINNER [facility] Last Admin: 01/29/18 17:52 Dose: Not Given Senna (Senna) 8.6 mg PO DAILY [facility] Last Admin: 01/30/18 09:17 Dose: 8.6 mg Temazepam (Restoril) 15 mg PO BEDTIME PRN PRN Reason: Sleep Tiotropium [place] (Spiriva Handihaler) 18 mcg INH DAILY [facility] Last Admin: 01/30/18 09:18 Dose: 1 inhalation Triamterene/HCTZ (Maxzide 25-37.5 Mg) 1 each PO DAILY [facility] Last Admin: 01/30/18 09:12 Dose: 1 each Discontinued Medications Albuterol/Ipratropium (Duoneb 3.0-0.5 Mg/3 Ml) 3 ml NEB ONETIME ONE Stop: 01/28/18 10:04 Last Admin: 01/28/18 10:26 Dose: Not Given Albuterol/Ipratropium (Duoneb 3.0-0.5 Mg/3 Ml) Confirm Administered Dose 3 ml .ROUTE .STK-MED ONE Stop: 01/28/18 10:22 Last Admin: 01/28/18 10:27 Dose: 3 ml Sodium Chloride (Normal Saline) 1,000 mls @ 30 mls/hr IV STAT [facility] Last Admin: 01/28/18 10:20 Dose: 30 mls/hr Azithromycin 250 mg/ Sodium (Chloride) 250 mls @ 250 mls/hr IV ONETIME ONE Stop: 01/28/18 16:32 Last Admin: 01/28/18 16:12 Dose: 250 mls/hr Methylprednisolone Sodium Succinate (Solu-Medrol) 125 mg IVPUSH ONETIME ONE Stop: 01/28/18 10:04 Last Admin: 01/28/18 10:20 Dose: 125 mg Morphine Sulfate (Morphine) 2 mg IVPUSH Q2H PRN PRN Reason: Pain (severe 7-10) Stop: 01/29/18 15:30 Ondansetron HCl (Zofran) 4 mg IVPUSH Q6H [facility] Last Admin: 01/28/18 16:04 Dose: Not Given Pneumococcal Polyvalent Vaccine (Pneumovax 23) 0.5 ml IM .ONCE ONE Stop: 01/28/18 15:27 Last Admin: 01/29/18 16:09 Dose: Not Given - Exam Quality Assessment: Denies: Supplemental Oxygen, Urine Catheter General: Reports: Alert, Oriented, Cooperative, No Acute Distress HEENT: Reports: Pupils Equal, Pupils Reactive, EOMI Neck: Reports: Supple, Trachea Midline, No Thyromegaly Lungs: Reports: Clear to Auscultation, Normal Respiratory Effort Cardiovascular: Reports: Regular Rate, Regular Rhythm GI/Abdominal Exam: Normal Bowel Sounds, Soft, No Distention (Male) Exam: Deferred Rectal (Males) Exam: Deferred Back Exam: Reports: Normal Inspection Extremities: Normal Inspection, No Pedal Edema Skin: Reports: Warm, Dry, Intact Neurological: Reports: No New Focal Deficit Psy/Mental Status: Reports: Alert, Normal Affect, Normal Mood
[2018-01-30] MEDS ORDERED: Albuterol/Ipratropium 3.0-0.5 MG/3 ML Neb Soln NEB PRN (11:27)
[2018-01-30] MEDS ORDERED: Azithromycin 250 MG Tab PO SCH (11:30)
[2018-01-30] MEDS ORDERED: methylPREDNISolone 4 MG Tab 21 Tab/Dosepak PO SCH (12:30)
[2018-01-31] MEDS ORDERED: methylPREDNISolone 4 MG Tab 21 Tab/Dosepak PO SCH (12:30)
[2018-02-01] MEDS ORDERED: methylPREDNISolone 4 MG Tab 21 Tab/Dosepak PO SCH (12:30)
[2018-02-02] MEDS ORDERED: methylPREDNISolone 4 MG Tab 21 Tab/Dosepak PO SCH (12:30)
[2018-02-03] MEDS ORDERED: methylPREDNISolone 4 MG Tab 21 Tab/Dosepak PO SCH (12:30)
[2018-02-04] MEDS ORDERED: methylPREDNISolone 4 MG Tab 21 Tab/Dosepak PO SCH (12:30)
== END 2018-01-30 13:00 | disposition home or self-care (01) | DRG 189 ==
LOC: MW.ED 09:59 → MW.MS 11:32
PROVIDERS: ADMIT Internal Medicine; ATTEND Internal Medicine
DX: J96.21 Acute and chronic respiratory failure with hypoxia (principal); J44.1 Chronic obstructive pulmonary disease with (acute) exacerbation; E11.42 Type 2 diabetes mellitus with diabetic polyneuropathy; I10 Essential (primary) hypertension; E66.9 Obesity, unspecified; H26.9 Unspecified cataract; H54.7 Unspecified visual loss; G47.30 Sleep apnea, unspecified; Z68.35 Body mass index [BMI] 35.0-35.9, adult; Z79.899 Other long term (current) drug therapy; Z79.82 Long term (current) use of aspirin; Z79.84 Long term (current) use of oral hypoglycemic drugs; Z87.891 Personal history of nicotine dependence; Z95.0 Presence of cardiac pacemaker; Z95.1 Presence of aortocoronary bypass graft
CPT/HCPCS: 36415; 36600; 71045; 71045-26; 80048; 80053; 81001; 82803; 82962; 83036; 83735; 83880; 84484; 85025; 87804; 93005; 94640; 96361; 96374; 99285-25; A9270-GY; J0456; J1650; J1815-GY; J2930; J7040; J7050; J7620-GY